=== PATIENT | female | born 1945 | race Caucasian/White ===

== ENCOUNTER → 2019-02-02 | Outpatient (CLI) | payer MEDICARE, BC ==
--- NOTE | 2019-02-02 15:08 | KCIC ---
EXAM: Chest, 2 views. HISTORY: Shortness of breath. COMPARISON: None. FINDINGS: 2 views of the chest are obtained. There is diffuse interstitial infiltrate. There is no consolidation, pleural effusion or pneumothorax. The heart is normal in size. There are dorsal column stable and leads overlying the mid thoracic spine. There is slight hypoventilation. IMPRESSION: Diffuse interstitial infiltrate. Electronically signed by: Medina Xiong MD (02/02/2019 3:05 PM) [place] [id number]
== END ==
LOC: KCIC 14:17
PROVIDERS: ATTEND Family Medicine
DX: R06.02 Shortness of breath (principal)
CPT/HCPCS: 71046

== ENCOUNTER → 2019-04-26 | Outpatient (CLI) | payer MEDICARE, BC ==
[2019-04-21 14:43] VITALS: BP 129/75
[~2019-04-26] MED LIST: APIX5TAB PO; BIOT25006 PO; CITA40TA5 PO; DILT180C2 PO; FERR325T14 PO; FEXO180T16 PO; FURO20TA3 PO; METH-184 PO; METO50TA6 PO; OMEP40CA45 PO; POTA10TA12 PO; PRAV40TA2 PO
--- NOTE | 2019-04-27 07:41 | RAD ---
PROCEDURE: CERVICAL SPINE 2-3V STUDY DATE: 04/26/2019 CLINICAL INDICATION / HISTORY: Lytic lesion at C7 on prior CT.. TECHNIQUE: 3 VIEWS: AP, lateral and odontoid COMPARISON: CT chest with IV contrast 04/20/2019 FINDINGS: Alignment is within normal limits. There is preservation of the normal cervical lordosis. Vertebral body heights are maintained. There is mild disc space narrowing in the cervical spine notably at C5-C6 and to lesser extent C4-C5. The C7 body is partly obscured on the lateral view by soft tissue in the thoracic inlet but no lytic destructive bone lesions are identified. Bones are mildly demineralized.. The atlantoaxial joint is well maintained. No fracture or subluxation is identified. Prevertebral and paraspinous soft tissues show aortic calcifications and calcifications at the level of the bilateral carotid bulbs.. IMPRESSION: No plain film evidence of an aggressive osseous lesion in the cervical spine. There is a high index of suspicion for a marrow replacing process or other aggressive process, follow-up C-spine dedicated CT can be pursued or, if the patient's implanted medical hardware is MR compatible, C-spine MRI. Electronically signed by: Valeria Jackson MD (04/27/2019 7:38 AM) [facility]
== END | disposition home or self-care (01) ==
LOC: RAD 17:06
PROVIDERS: ATTEND Internal Medicine Hematology & Oncology
DX: I65.23 Occlusion and stenosis of bilateral carotid arteries (principal); I70.0 Atherosclerosis of aorta
CPT/HCPCS: 72040

== ENCOUNTER → 2019-04-28 | Outpatient (CLI) | payer MEDICARE, BC ==
[2019-04-21 14:43] VITALS: BP 129/75
--- NOTE | 2019-04-28 17:49 | KCIC ---
PROCEDURE: TIBIA FIBULA BILAT STUDY DATE: 04/28/2019 CLINICAL INDICATION / HISTORY: Right leg pain. TECHNIQUE: AP and lateral views of the right tibia and fibula. COMPARISON: None FINDINGS: AP and lateral views of the right tibia and fibula show no acute fracture, dislocation or bone destruction. The soft tissues are normal. IMPRESSION: Normal right tibia and fibula. Electronically signed by: Valeria Jackson MD (04/28/2019 5:46 PM) [facility]
== END ==
LOC: KCIC 15:49
PROVIDERS: ATTEND Family Medicine
DX: M79.604 Pain in right leg (principal); M79.605 Pain in left leg
CPT/HCPCS: 73590

== ENCOUNTER → 2019-07-08 | Outpatient (CLI) | payer MEDICARE, BC ==
[2019-04-21 14:43] VITALS: BP 129/75
[~2019-07-08] MED LIST changes: +CONTRAST GIVEN. MC PRN; +IOHEXOL 300 MG/ML 100ML VIAL. IV ONE
--- NOTE | 2019-07-08 11:46 | RAD ---
CT NECK CHEST W/CONT History:Lymphadenopathy Technique: CT imaging was performed of the neck soft tissues and chest with contrast. Coronal and sagittal reconstructions were performed. Exposure: One or more of the following individualized dose reduction techniques were utilized for this examination: 1. Automated exposure control 2. Adjustment of the mA and/or kV according to patient size 3. Use of iterative reconstruction technique. Comparison: April 20, 2019 Findings: Neck soft tissue: No pathologic lymphadenopathy within the neck. Normal appearance of the bilateral submandibular and parotid glands. Multiple small thyroid nodules, similar compared to prior. Largest on the right measures 1.3 cm. Scattered atheromatous plaque throughout the neck. Moderate narrowing of the right proximal internal carotid artery. Mild narrowing of the left proximal internal carotid artery. Imaged lung apices are unremarkable. Imaged paranasal sinuses are clear. Minimal right mastoid fluid. Imaged orbits and intracranial contents are unremarkable. Moderate multilevel cervical spondylosis most prominent C5-C6. Multilevel neuroforaminal narrowing. No high-grade canal stenosis. Unchanged lucent lesion within right C7 vertebral body. Chest CT: Atheromatous plaque within the aorta and branch vessels. Coronary artery calcifications. Resolved pleural effusions. Mildly enlarged precarinal lymph node on the right measures 1.6 x 1.1 cm, decreased compared to prior measured 2.1 x 1.4 cm. Decreased left precarinal lymph node measures 1.7 x 1.4 cm compared to 2.4 x 1.5 cm. Decreased additional mediastinal lymph nodes. No pathologic hilar lymphadenopathy. Mild mid to distal esophageal wall thickening. Emphysematous changes. Bilateral reticular opacities. No new consolidations. Mildly enlarged pulmonary artery measures 3.5 cm. Right lower lobe 3 mm pulmonary nodule (series 4 image 34), unchanged. Upper abdomen: Mild intrahepatic biliary ductal dilatation, unchanged. Nodular morphology of the liver, unchanged. Minimal perihepatic ascites. Bones: No pathologic osseous lesions. Spinal stimulator leads noted. Impression: Soft tissue neck CT: 1. No pathologic lymphadenopathy within the neck. 2. Unchanged C7 vertebral body lucent lesion. 3. Multiple thyroid nodules, unchanged. 4. Moderate right and mild left proximal internal carotid artery narrowing due to atheromatous plaque. Chest CT: 1. Decreased mediastinal lymphadenopathy. 2. Mild mid and distal esophageal wall thickening, may relate to reflux or esophagitis. 3. Right lower lobe small pulmonary nodule. Recommend one-year follow-up. 4. Emphysematous changes with bilateral reticular opacities, unchanged. No new consolidation. 5. Nodular morphology of the liver, concerning for chronic liver disease. 6. Mild intrahepatic biliary ductal dilatation, unchanged. 7. Mildly enlarged pulmonary artery, may indicate pulmonary artery hypertension, unchanged. Electronically signed by: Jesse Escamilla DO (07/08/2019 11:43 AM) [id number]
== END | disposition home or self-care (01) ==
LOC: CT 10:19
PROVIDERS: ATTEND Internal Medicine Hematology & Oncology
DX: E04.2 Nontoxic multinodular goiter (principal); I70.0 Atherosclerosis of aorta; I65.23 Occlusion and stenosis of bilateral carotid arteries; I25.10 Atherosclerotic heart disease of native coronary artery without angina pectoris; J43.9 Emphysema, unspecified; J98.4 Other disorders of lung; I77.89 Other specified disorders of arteries and arterioles; R91.1 Solitary pulmonary nodule; M47.812 Spondylosis without myelopathy or radiculopathy, cervical region; M53.82 Other specified dorsopathies, cervical region; I11.0 Hypertensive heart disease with heart failure; I50.9 Heart failure, unspecified; Z79.01 Long term (current) use of anticoagulants
CPT/HCPCS: 70491; 71260; Q9967

== ENCOUNTER → 2019-10-04 | Outpatient (CLI) | payer MEDICARE, BC ==
[2019-04-21 14:43] VITALS: BP 129/75
[~2019-10-04] MED LIST changes: -CONTRAST GIVEN. MC PRN; -IOHEXOL 300 MG/ML 100ML VIAL. IV ONE
--- NOTE | 2019-10-04 14:35 | CARD ---
MR#: [id number] Date of Study: 10/04/2019 Ordering Physician: HARLEEN PARDO, Referring Physician: HARLEEN PARDO, Tech: Alee Gr APPROVED REPORT EXAM: Two-dimensional and M-mode echocardiogram with Doppler and color Doppler. Other Information Quality : AverageHR: 61bpm Technically limited study due to body habitus. INDICATION Atrial Fibrillation RISK FACTORS Hypertension Hyperlipidemia 2D DIMENSIONS Left Atrium(2D)4.0 (1.6-4.0cm)IVSd1.3 (0.7-1.1cm) Aortic Root(2D)3.1 (2.0-3.7cm)LVDd5.2 (3.9-5.9cm) LVOT Diameter2.2 (1.8-2.4cm)PWd1.2 (0.7-1.1cm) LVDs3.6 (2.5-4.0cm)FS (%) 29.5 % SV71.9 mlLVEF(%)56.1 (>50%) Aortic Valve AoV Peak Rich.139.1cm/sAoV VTI32.8cm AO Peak GR.7.7mmHgLVOT Peak Rich.95.8cm/s LVOT VTI 23.03cmAO Mean GR.4mmHg MANN (VMAX)1.36bw4URO (VTI)2.55cm2 AI P 1/2 Jucq150th Mitral Valve MV E Ckidskqk26.3cm/sMV E Peak Gr.110mmHg MV DECEL [id number] A Hftqcdnb51.4cm/s MV E Mean Gr.2mmHgMV FBR76lq E/A Ratio2.3MVA (PHT)3.64cm2 Pulmonary Valve PV Peak Ljrdqynr63.0cm/sPV Peak Grad.3mmHg Tricuspid Valve TR P. Ssqegvwc914xx/sRAP PTTCOQNT1jsIw TR Peak Gr.18xbNeQAKR98iqFd Pulmonary Vein S1 Bdpluxge97.5cm/sD2 Djwntoxu53.9cm/s PVa [id number] LEFT VENTRICLE The left ventricle is normal size. There is mild concentric left ventricular hypertrophy. The left ve ntricular systolic function is low normal. The Ejection Fraction is 50%. There is normal LV segmental wall motion. Tissue Doppler imaging reveals moderate left ventricular diastolic dysfunction. RIGHT VENTRICLE The right ventricle is normal size. There is normal right ventricular wall thickness. The right ventr icular systolic function is normal. ATRIA The left atrium is mildly dilated. The right atrium size is normal. The interatrial septum is intact with no evidence for an atrial septal defect or patent foramen ovale as noted on 2-D or Doppler imagi ng. AORTIC VALVE The aortic valve is thickened but opens well. Doppler and Color Flow revealed trace aortic regurgitat ion. There is no significant aortic valvular stenosis. Calculated aortic valve area is 2.5 cm2 with m aximum pressure gradient of 9 mmHg and mean pressure gradient of 5 mmHg. MITRAL VALVE The mitral valve is normal in structure and function. There is no evidence of mitral valve prolapse. There is no mitral valve stenosis with a mean gradient of 1.7 mmHg. Doppler and Color-flow revealed t race mitral regurgitation. TRICUSPID VALVE The tricuspid valve is normal in structure and function. Doppler and Color Flow revealed mild tricusp id regurgitation with an estimated PAP of 55 mmHg. There is no tricuspid valve stenosis. PULMONIC VALVE The pulmonic valve is not well visualized. Doppler and Color Flow revealed no pulmonic valvular regur gitation. GREAT VESSELS The aortic root is normal in size. The IVC is normal in size and collapses >50% with inspiration. PERICARDIAL EFFUSION There is no evidence of significant pericardial effusion. Critical Notification Critical Value: No <Conclusion> The left ventricular systolic function is low normal. The Ejection Fraction is 50%. Tissue Doppler imaging reveals moderate left ventricular diastolic dysfunction. Trace aortic regurgitation. Trace mitral regurgitation. Mild tricuspid regurgitation with an estimated PAP of 55 mmHg. There is no evidence of significant pericardial effusion. Signed by : Marquis Farrell, Electronically Approved : 10/04/2019 14:35:22
== END | disposition home or self-care (01) ==
LOC: ECHO 08:52
PROVIDERS: ATTEND Internal Medicine Cardiovascular Disease
DX: I07.1 Rheumatic tricuspid insufficiency (principal); I48.0 Paroxysmal atrial fibrillation
CPT/HCPCS: 93306

== ENCOUNTER 2019-10-07 05:27 | Emergency (ER) | payer MEDICARE, BC ==
[~2019-10-07] VITALS: Ht 165.1 cm; Wt 91.3 kg
[2019-10-07 06:43] LABS: BASO % 1 % (0-3); EOS # 0.2 x10^3/uL (0.0-0.7); EOS % 4 % (0-3); HEMATOCRIT 34.5 % (36.0-47.0); HEMOGLOBIN 11.3 g/dL (12.0-15.5); LYMPH # 1.1 x10^3/uL (1.0-4.8); LYMPH % 19 % (24-48); MEAN CORPUSCULAR HEMOGLOBIN 28 pg (25-35); MEAN CORPUSCULAR HGB CONC 33 g/dL (31-37); MEAN CORPUSCULAR VOLUME 86 fL (79-100); MONO # 0.5 x10^3/uL (0.0-1.1); MONO % 8 % (0-9); NEUT % 69 % (31-73); PLATELET COUNT 180 x10^3/uL (140-400); RED CELL DISTRIBUTION WIDTH 14.2 % (11.5-14.5); WHITE BLOOD COUNT 5.8 x10^3/uL (4.0-11.0)
[2019-10-07] MEDS ORDERED: IV NORMAL SALINE 500ML BAG 500 ML IV ONE (06:45)
[2019-10-07 06:49] LABS: CREATININE 0.8 mg/dL (0.6-1.0); GFR 69.7; POTASSIUM 4.1 mmol/L (3.5-5.1)
--- NOTE | 2019-10-07 06:52 | PHYS DOC ---
Past Medical History Past Medical History: A-Fib, High Cholesterol, Hypertension, Hyperthyroid Additional Past Medical Histor: VERTIGO, SLEEP APNEA Past Surgical History: Cholecystectomy, Colectomy, Hysterectomy Additional Past Surgical Histo: BACK IMPLANT FOR CHRONIC BACK PAIN Smoking Status: Former Smoker Alcohol Use: None General Adult EDM: Chief Complaint: presyncopal episode HPI: HPI: 74-year-old female presents emergency department today after having a episode of dizziness. She has chronic BPPV and this morning when she got up to go to the restroom she had return of her symptoms. She describes them as the same as they always are. She felt the room spinning and mildly lightheaded. She then felt weak in her legs. She reports there is no chance that she passed out. She remembers the entire event. She did not hit her head. She did not fall to the ground. EMS was called and brings the patient in for evaluation. The patient symptoms have resolved on presentation the emergency department and she has no pain. Onset this morning. Location generalized. Duration intermittent. No alleviating factors. Worse with getting up. She reports normal ostomy output. She reports normal intake. Review of systems negative for chest pain shortness of breath abdominal pain vomiting fevers chills. All other review of systems negative. 74-year-old female presented to the emergency department prior to my shift at 6 AM and was awaiting to be seen when I arrived. Her EKG was reviewed by previous provider. EKG reviewed by myself shows sinus rhythm with a regular rate. ST segments congruent. Not suggestive of acute ischemia. On arrival she is asymptomatic. Normal physical exam. Head CT and blood work ordered. Work-up unremarkable. Patient is asymptomatic we will discharge to follow-up with PCP in 1 to 2 days. Heart Score: Risk Factors: Risk Factors: DM, Current or recent (<one month) smoker, HTN, HLP, family history of CAD, obesity. Risk Scores: Score 0 - 3: 2.5% MACE over next 6 weeks - Discharge Home Score 4 - 6: 20.3% MACE over next 6 weeks - Admit for Clinical Observation Score 7 - 10: 72.7% MACE over next 6 weeks - Early Invasive Strategies Allergies: Allergies: Allergies Coded Allergies Type Severity Reaction Last Updated Verified Sulfa (Sulfonamide Antibiotics) Allergy Intermediate 04/17/19 Yes hydromorphone Allergy Intermediate 04/17/19 Yes morphine Allergy Intermediate 04/17/19 Yes Physical Exam: PE: Constitutional: Well developed, well nourished, no acute distress, non-toxic appearance. [] HENT: Normocephalic, atraumatic, bilateral external ears normal, oropharynx moist, no oral exudates, nose normal. [] Eyes: PERRLA, EOMI, conjunctiva normal, no discharge. [] Neck: Normal range of motion, no tenderness, supple, no stridor. [] Cardiovascular: reg rate with regular rhythm, no murmur. Lungs & Thorax: Bilateral breath sounds clear to auscultation [] Abdomen: Bowel sounds normal, soft, no tenderness, no masses, no pulsatile masses. [] Skin: Warm, dry, no erythema, no rash. [] Back: No tenderness, no CVA tenderness. [] Extremities: No tenderness, no cyanosis, no clubbing, ROM intact, no edema. [] Neurologic: Mental status: Awake oriented and alert x3 Cranial nerves: Extraocular movements intact, eyebrows vinay bilaterally, smile symmetric, uvula elevation nl, shoulder shrug intact bilaterally, tongue protrusion normal DTRs: 2+ Sensation: equal and normal in all extremities Strength: 5/5 in upper and lower extremities bilaterally. no drift. HINTS testing suggestive of peripheral vertigo. lateral rotatory nystagmus Psychologic: Affect normal, judgement normal, mood normal. [] Current Patient Data: Vital Signs: Vital Signs Date Time Temp Pulse Resp B/P (MAP) Pulse Ox O2 Delivery O2 Flow Rate FiO2 10/07/19 05:30 98.3 59 16 116/48 (70) 93 Room Air 98.3 EKG: EKG: [] Radiology/Procedures: Radiology/Procedures: [] Course & Med Decision Making: Course & Med Decision Making Pertinent Labs and Imaging studies reviewed. (See chart for details) [] Dragon Disclaimer: Dragon Disclaimer: This electronic medical record was generated, in whole or in part, using a voice recognition dictation system. Departure Departure Impression: Primary Impression: Vertigo Disposition: 01 HOME, SELF-CARE Condition: STABLE Referrals: Sotero DICKSON MD (PCP) Patient Instructions: Vertigo, [id number] Justicifation of Admission Dx: Justifications for Admission: Justification of Admission Dx: N/A SHANIQUE ZAMORANO MD Oct 07, 2019 06:52
[2019-10-07 06:55] LABS: ALBUMIN 2.6 g/dL (3.4-5.0); ALBUMIN/GLOBULIN RATIO 0.7 (1.0-1.7); MAGNESIUM 1.8 mg/dL (1.8-2.4); TOTAL BILIRUBIN 0.5 mg/dL (0.2-1.0); TOTAL PROTEIN 6.2 g/dL (6.4-8.2)
--- NOTE | 2019-10-07 07:01 | RAD ---
CT HEAD WO CONTRAST Date: 10/07/2019 6:23 AM Clinical Indication: Reason: dizziness / Spl. Instructions: / History: Comparison: 04/17/2019. Technique: 5 mm axial tomographic images were obtained of the head without contrast. These were viewed on brain and bone windows. One or more of the following dose reduction techniques were utilized: Automated exposure control (AEC), Adjustment of mA and/or kV according to patient size, Use of iterative reconstruction technique such as ASiR, CT scan done according to ALARA and image gently/image wisely Findings: Mild generalized cerebral and cerebellar volume loss. Mild nonspecific periventricular hypoattenuation, most commonly seen with chronic small vessel ischemic disease. Calcified atherosclerosis of the bilateral cavernous and paraclinoid internal carotid arteries and intracranial vertebral arteries. No intra- or extra-axial mass or fluid collection. No acute hemorrhage. The ventricles are normal in size, shape, and morphology. The groves-white matter junction is normal. The subarachnoid cisterns are patent. The visualized paranasal sinuses are normal. The visualized portions of the orbits and globes are normal. The mastoid air cells are clear. The distribution accounting clerk topogram shows no lytic lesion or fracture. Impression: No acute intracranial process. Mild cerebral volume loss. Mild chronic small vessel ischemic disease. Electronically signed by: Jaime Boyle MD (10/07/2019 6:58 AM) [id number]
[2019-10-07 08:26] VITALS: BP 141/68
--- NOTE | 2019-10-07 15:37 | EKG ---
[facility] [address] [place] [address] Test Date: 2019-10-07 Test Time: 05:45:49 Pat Name: SINDHU SINGH Department: Room: Gender: F [employer]: : 1945 Requested By: SHANIQUE ZAMORANO Order Number: [id number] Reading MD: Measurements Intervals [place] Rate: 58 P: 47 ID: [id number] QRS: 27 QRSD: 90 T: 19 QT: 462 QTc: 457 Interpretive Statements SINUS RHYTHM NO SPECIFIC ECG ABNORMALITIES RI6.02 No previous ECG available for comparison
== END 2019-10-07 08:23 | disposition home or self-care (01) ==
LOC: ER 05:27
DX: R42 Dizziness and giddiness (principal); I48.91 Unspecified atrial fibrillation; E78.00 Pure hypercholesterolemia, unspecified; I10 Essential (primary) hypertension; G89.29 Other chronic pain; Z87.891 Personal history of nicotine dependence; Z88.2 Allergy status to sulfonamides; Z88.5 Allergy status to narcotic agent
CPT/HCPCS: 36415; 70450; 80053; 83735; 84484; 85025; 93005; 99285; J7040; 96360; 96361

== ENCOUNTER → 2020-07-06 | Outpatient (CLI) | payer MEDICARE, BC ==
[~2020-07-06] MED LIST changes: +AMIO200T6 PO; +AMLO-187 PO; +ASPI-886 PO; +ATOR40TA PO; +GABA-585 PO; +PRAS10TA9 PO; +TRAM50TA PO; +ZOLP10TA PO
== END ==
LOC: LAB 12:12
PROVIDERS: ATTEND Internal Medicine Cardiovascular Disease
DX: Z01.812 Encounter for preprocedural laboratory examination (principal); Z20.822 Contact with and (suspected) exposure to COVID-19
CPT/HCPCS: U0003; U0005